=== PATIENT | female | born 1945 | race Caucasian/White ===

== ENCOUNTER → 2020-10-16 | Outpatient (CLI) | payer MEDICARE, OTHER ==
[~2020-10-16] MED LIST: ACTOS30 MG PO; ASPIRIN81 MG PO; ATORVASTATIN CA40 MG PO; AZITHROMYCIN250 MG PO; CARTIA XT120 MG PO; CEFUROXIME500 MG PO; CEPHALEXIN500 M1 PO; CHLORTHALIDONE25 MG PO; ELIQUIS5 MG PO; FAMOTIDINE20 MG PO; FLOMAX 0.4 MG0.4 MG PO; FLONASE 0.05% N16 GM; HYDROCODON-ACE1 EAC6 PO; JANUVIA100 MG PO; JANUVIA50 MG PO; LEVOCETIRIZINE D5 MG PO; LISINOPRIL10 MG PO; LISINOPRIL40 MG PO; LOPRESSOR 25 MG25 MG PO; METOPROLOL TART25 MG PO; MULTAQ 400 MG400 MG PO; NORCO 5-325 TA1 EACH PO; NORVASC 5 MG TAB5 MG PO; PERCOCET 10-321 EACH PO; PERCOCET 5-3251 EACH PO; PHENERGAN 25 MG25 M1 PO; PROTONIX40 MG PO; TYLENOL 325MG325 MG PO; VITAMIN D-32000 UNI1 PO; ZOCOR10 MG PO; ZOFRAN ODT 4 MG4 MG SL
== END ==
LOC: EXRD 10:05
DX: R74.8 Abnormal levels of other serum enzymes (principal); K76.0 Fatty (change of) liver, not elsewhere classified
CPT/HCPCS: 76700

== ENCOUNTER 2020-11-19 18:46 | Emergency (ER) | payer MEDICARE, OTHER ==
[~2020-11-19 18:46] MED LIST changes: -CEPHALEXIN500 M1 PO; -FLOMAX 0.4 MG0.4 MG PO; -PERCOCET 5-3251 EACH PO; -ZOFRAN ODT 4 MG4 MG SL
[2020-11-19 21:07] LABS: HEMOGLOBIN 13.9 gm/dl (12.3-15.3); RED BLOOD COUNT 4.6 M/UL (4.00-5.10); WHITE BLOOD COUNT 13.3 K/UL (4.5-11.0)
[2020-11-19] MEDS ORDERED: PERCOCET 5-3251 EACH PO (22:18)
[2020-11-19] MEDS ORDERED: FLOMAX 0.4 MG0.4 MG PO (22:26)
[2020-11-19] MEDS ORDERED: ZOFRAN ODT 4 MG4 MG SL (22:26)
[2020-11-19] MEDS ORDERED: CEPHALEXIN500 M1 PO (22:26)
== END 2020-11-19 22:45 | disposition home or self-care (01) ==
LOC: ER1 18:46
PROVIDERS: Physician Assistant
DX: N13.2 Hydronephrosis with renal and ureteral calculous obstruction (principal); N39.0 Urinary tract infection, site not specified; Z88.2 Allergy status to sulfonamides; Z88.5 Allergy status to narcotic agent; Z79.01 Long term (current) use of anticoagulants; Z79.899 Other long term (current) drug therapy; E11.9 Type 2 diabetes mellitus without complications; I48.91 Unspecified atrial fibrillation; I10 Essential (primary) hypertension; Z87.442 Personal history of urinary calculi
CPT/HCPCS: 80053; 81001; 85025; 96374; 96375; 99284; J0696; J1885; J2405; J7030

== ENCOUNTER → 2021-02-19 | Outpatient (CLI) | payer MEDICARE, OTHER ==
[~2021-02-19] MED LIST changes: +CEPHALEXIN500 M1 PO; +FLOMAX 0.4 MG0.4 MG PO; +PERCOCET 5-3251 EACH PO; +ZOFRAN ODT 4 MG4 MG SL
== END ==
LOC: MAMO 14:32
DX: Z12.31 Encounter for screening mammogram for malignant neoplasm of breast (principal)
CPT/HCPCS: 77063; 77067

== ENCOUNTER → 2021-04-09 | Outpatient (CLI) | payer MEDICARE, OTHER | LOC: KOH-I 12:07 | DX: R06.02 Shortness of breath (principal) | CPT/HCPCS: 71046 ==

== ENCOUNTER → 2021-04-16 | Outpatient (CLI) | payer MEDICARE, OTHER | LOC: ECHO 12:38 | DX: R06.09 Other forms of dyspnea (principal); I08.3 Combined rheumatic disorders of mitral, aortic and tricuspid valves | CPT/HCPCS: ECHO; 93306 ==

== ENCOUNTER → 2021-05-17 | Outpatient (CLI) | payer MEDICARE | LOC: KOH-I 08:00 | DX: Z87.891 Personal history of nicotine dependence (principal) | CPT/HCPCS: 71271 ==

== ENCOUNTER → 2021-07-31 | Outpatient (CLI) | payer MEDICARE | LOC: HEART 5 13:34 | DX: R06.00 Dyspnea, unspecified (principal) | CPT/HCPCS: 94060; 94729 ==

== ENCOUNTER → 2021-11-18 | Outpatient (CLI) | payer MEDICARE, OTHER | LOC: EXRD 09:45 | DX: K74.60 Unspecified cirrhosis of liver (principal); B18.1 Chronic viral hepatitis B without delta-agent; Z90.49 Acquired absence of other specified parts of digestive tract; N28.1 Cyst of kidney, acquired | CPT/HCPCS: 76705 ==

== ENCOUNTER → 2022-02-25 | Outpatient (CLI) | payer MEDICARE, OTHER | LOC: KOH-I 12:35 | DX: M79.671 Pain in right foot (principal) | CPT/HCPCS: 73630 ==